=== PATIENT | male | born 1940 | race Caucasian/White ===

== ENCOUNTER 2020-06-03 08:33 | Outpatient (CLI) | payer OTHER ==
--- NOTE | 2020-06-03 08:56 | RAD ---
Left hand 2 views: 06/03/2020 COMPARISON: None available HISTORY: Pain, arthritis FINDINGS: There is prominent joint space narrowing and osteophyte formation involving the second and third metacarpophalangeal joints and the first interphalangeal joint. Punctate metallic soft tissue densities noted adjacent to the first interphalangeal joint and within the soft tissues lateral to th e head of the second metacarpal. There is significant degenerative change involving the third and fourth proximal interphalangeal joints. No acute fracture or dislocation. IMPRESSION: Degenerative joint disease.
--- NOTE | 2020-06-03 08:57 | RAD ---
Right hand 3 views: 06/03/2020 COMPARISON: None HISTORY: Pain, arthritis FINDINGS: Joint space narrowing and osteophyte formation noted at the first, second, and third metaca rpophalangeal joints, the interphalangeal joint of the thumb, and the second through fourth proximal interphalangeal joints. No acute fracture or evidence of dislocation is seen. There are dege nerative changes involving the distal interphalangeal joint of the second and third fingers as well. IMPRESSION: Degenerative joint disease. No acute osseous abnormality.
--- NOTE | 2020-06-03 09:00 | RAD ---
Lumbar spine 3 views: 06/03/2020 COMPARISON: None HISTORY: Arthritis, pain FINDINGS: Lumbar pedicles appear intact on frontal imaging. Multilevel lateral osteophyte formation. Vertebral body height and alignment appears within normal limits. Mild lower lumbar spine facet hypertrophy. Anterior osteophyte formation noted at L3-4. No acute osseous abnormality. IMPRESSION: Lumbar spine degenerative change. No acute osseous abnormality.
== END 2020-06-03 08:34 | disposition home or self-care (01) ==
LOC: MADRAD 08:33
PROVIDERS: ATTEND Orthopaedic Surgery
DX: M47.816 Spondylosis without myelopathy or radiculopathy, lumbar region (principal); M19.041 Primary osteoarthritis, right hand; M19.042 Primary osteoarthritis, left hand
CPT/HCPCS: 72100

== ENCOUNTER 2020-07-26 08:03 | Outpatient (CLI) | payer OTHER | END 2020-07-26 08:04 | disposition home or self-care (01) | LOC: MADLAB 08:03 | PROVIDERS: ATTEND Orthopaedic Surgery | DX: E11.9 Type 2 diabetes mellitus without complications (principal) | CPT/HCPCS: 36415; 82951 ==